=== PATIENT | male | born 1970 | race Two or more races ===

== ENCOUNTER 2021-11-26 13:00 | Emergency (ER) | payer SELFPAY ==
[~2021-11-26] VITALS: Ht 172.7 cm; Wt 77.3 kg
[2021-11-26 14:01] VITALS: BP 118/69
[2021-11-26 14:15] VITALS: BP 124/76
[2021-11-26 14:30] VITALS: BP 114/79
[2021-11-26 14:45] VITALS: BP 126/81
[2021-11-26 15:00] VITALS: BP 116/73
[2021-11-26] MEDS ORDERED: ECONAZOLE1 % EX ×2 (15:27→15:29)
[2021-11-26] MEDS ORDERED: CEPHALEXIN500 M1 PO ×2 (15:27→15:29)
[2021-11-26 15:45] VITALS: BP 116/73
== END 2021-11-26 15:45 | disposition home or self-care (01) | DRG 603 ==
LOC: ED 13:00
DX: L03.115 Cellulitis of right lower limb (principal); S81.811A Laceration without foreign body, right lower leg, initial encounter